=== PATIENT | female | born 1940 | race Caucasian/White ===

== ENCOUNTER 2017-09-20 13:35 | Outpatient (CLI) | payer MEDICARE ==
[~2017-09-20 13:35] MED LIST: Gadobenate Dimeglumine 529 MG/1 ML (20ML VIAL) ONE
--- NOTE | 2017-09-20 15:45 | MRI ---
BRAIN MRI WITH AND WITHOUT CONTRAST: COMPARISON: 12/08/16. INDICATION: Benign neoplasm of brain, unspecified, followup. COMPARISON: Reference is made to prior imaging exams dating back to head CT 01/12/08. FINDINGS: Redemonstration of extraaxial T1 hyperintense lesion, abutting the anterior aspect of the anterior po le right temporal lobe within the right middle cranial fossa. There are additional scattered punctat e intrinsic foci of T1 hyperintensity. Stable enhancing extraaxial mass overlying the lateral aspect of the right cerebellar hemisphere present. Redemonstration of mild chronic microvascular ischemic disease. There are stable areas of scattered susceptibility artifact redemonstrated notably about th e anterior right and middle right cranial fossae. IMPRESSION: Stable extraaxial lesions as described above. No significant interval detrimental change. POS: [facility]
== END 2017-09-20 13:36 | disposition home or self-care (01) ==
LOC: TBSIIMAG 13:35
PROVIDERS: ATTEND Neurological Surgery
DX: D33.2 Benign neoplasm of brain, unspecified (principal); G93.9 Disorder of brain, unspecified
CPT/HCPCS: 70553; 82565; A9579

== ENCOUNTER 2018-07-07 10:56 | Outpatient (CLI) | payer MEDICARE ==
--- NOTE | 2018-07-07 12:53 | MMO ---
Bilateral MAMMO Bilat Screen [facility]. CLINICAL HISTORY: Patient is 77 years old and is seen for screening. The patient has the following family history of breast cancer: maternal aunt, Great Maternal Aunts in their 70's.; maternal aunt, Great Maternal Aunts in their 70's. and niece. The patient has no personal history of cancer. The patient has a history of right Excisional Biopsy in 1997 - benign. VIEWS: The views performed were: bilateral craniocaudal with tomosynthesis and bilateral mediolateral oblique with tomosynthesis. FILMS COMPARED: The present examination has been compared to prior imaging studies performed at [facility] on 01/17/2008, 02/19/2009 and 07/16/2016, and at [facility] on 07/06/1996 and 09/27/1997. MAMMOGRAM FINDINGS: There are scattered fibroglandular densities. There are vascular calcifications seen in the right breast. There are no suspicious masses, calcifications or areas of architectural distortion. IMPRESSION: CALCIFICATIONS IN THE RIGHT BREAST ARE BENIGN. A ROUTINE FOLLOW-UP MAMMOGRAM IN 1 YEAR IS RECOMMENDED. THE RESULTS OF THIS EXAM WERE SENT TO THE PATIENT. ACR BI-RADS Category 2 - Benign finding MAMMOGRAPHY NOTE: 1. A negative mammogram report should not delay a biopsy if a dominant of clinically suspicious mass is present. 2. Approximately 10% to 15% of breast cancers are not detected by mammography. 3. Adenosis and dense breasts may obscure an underlying neoplasm.
== END 2018-07-07 10:57 | disposition home or self-care (01) ==
LOC: BICMAMMO 10:56
PROVIDERS: ATTEND Internal Medicine
DX: Z12.31 Encounter for screening mammogram for malignant neoplasm of breast (principal); R92.1 Mammographic calcification found on diagnostic imaging of breast; Z80.3 Family history of malignant neoplasm of breast
CPT/HCPCS: 77063; 77067

== ENCOUNTER 2019-05-10 14:34 | Outpatient (CLI) | payer MEDICARE, OTHER ==
[2019-05-10] MEDS ORDERED: Magnevist 469MG/ML 20 ML VIAL ONE (15:14)
--- NOTE | 2019-05-10 16:10 | MRI ---
MRI OF BRAIN WITH AND WITHOUT CONTRAST: 05/10/19 INDICATIONS: Follow-up tumor. Dizziness and headaches. COMPARISON: Comparison made to prior MRI of brain 09/20/17 and 12/08/16. FINDINGS: There is heterogeneous T1 enhanced lesion seen involving the right anterior medial cranial fossa exte nding into the right anterior cranial fossa. 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 The overall size and appearance of this mass lesion is stable. The hyperintensity within the sulci of the right frontal lobe appear unchanged. Susceptibility artifact in the anterior and middle cranial fossa on the right appears stable. Postcontrast images again reveal an extra-axial enhancing mass in the lateral right cerebellar hemisp here consistent with meningioma, stable. Prior exams have also described a tiny extra-axial enhancing mass posterior right parietal lobe. This is again seen and is stable. No new enhancement. No significant interval change. Paranasal sinuses are well aerated. IMPRESSION: Stable intracranial findings when compared to prior studies. POS: [facility]
== END 2019-05-10 14:35 | disposition home or self-care (01) ==
LOC: TBSIIMAG 14:34
PROVIDERS: ATTEND Neurological Surgery
DX: D49.6 Neoplasm of unspecified behavior of brain (principal)
CPT/HCPCS: 70553; 82565; A9579